=== PATIENT | male | born 1935 | race Hispanic/Latino ===

== ENCOUNTER 2017-04-20 18:02 | Inpatient (IN) | payer MEDICARE, OTHER ==
[~2017-04-20] VITALS: Ht 167.6 cm; Wt 77.2 kg
[~2017-04-20 18:02] MED LIST: DEXAMETHASONE SOD PHOS INJ 4 MG/ML VIAL ONE; LIDOCAINE HCL 2% LOCAL INJ 5 ML SDV VIAL INJ ONE; ONDANSETRON HCL INJ 2 MG/ML VIAL ONE; PROPOFOL IV EMULSION 10 MG/ML 20 ML VIAL ONE; SEVOFLURANE INHAL SOLN 250 ML PEN BTL ONE
[2017-04-20] MEDS ORDERED: KETOROLAC TROMETHAMINE 30 MG/ML VIAL IM STA (18:33)
[2017-04-20] MEDS ORDERED: SODIUM CHLORIDE 0.9% 1000ML 1,000 ML IV STA (18:33)
[2017-04-20] MEDS ORDERED: ACETAMINOPHEN 325 MG TAB PO STA (18:33)
[2017-04-20 18:49] LABS: BASOPHILS % 0.4 % (0.0-1.0); EOSINOPHILS # (AUTO) 0.1 (0.0-0.4); EOSINOPHILS % 1.6 % (0.0-6.0); HEMATOCRIT 32.3 % (38.2-49.6); HEMOGLOBIN 10.9 g/dL (14.0-18.0); MEAN CORPUSCULAR HEMOGLOBIN 31.4 pg (28-32); MEAN CORPUSCULAR HGB CONC 33.7 g/dL (31-35); MEAN CORPUSCULAR VOLUME 93.1 fL (81-99); MONOCYTES # (AUTO) 0.8 (0.2-0.8); MONOCYTES % 10.3 % (4.4-11.3); NEUTROPHILS # (AUTO) 5.4 (2.1-6.9); NEUTROPHILS % 73.4 % (38.7-80.0); PLATELET COUNT 244 x10e3/uL (140-360); RED BLOOD COUNT 3.47 x10e6/uL (4.3-5.7); RED CELL DISTRIBUTION WIDTH 11.9 % (11.7-14.4)
[2017-04-20 19:00] LABS: ALBUMIN 2.9 g/dL (3.5-5.0); ALBUMIN/GLOBULIN RATIO 0.7 (0.8-2.0); ANION GAP 12.2 mmol/L (8-16); CALCIUM 8.8 mg/dL (8.4-10.2); CREATININE, SERUM 1.66 mg/dL (0.72-1.25); POTASSIUM 4.2 mmol/L (3.5-5.1)
[2017-04-20 19:46] LABS: BILIRUBIN,URINE NEGATIVE (NEGATIVE); CLARITY,URINE SL CLOUDY (CLEAR); COLOR,URINE YELLOW (YELLOW); KETONES,URINE 2+ (NEGATIVE); LEUKOCYTE ESTERASE ,URINE TRACE (NEGATIVE); NITRITE,URINE NEGATIVE (NEGATIVE); PROTEIN,URINE DIPSTICK 1+ (NEGATIVE); URINE UROBILINOGEN 0.2 mg/dL (0.2 - 1)
[2017-04-20 20:00] LABS: BACTERIA,URINE MODERATE /HPF; RBC,URINE 0-5 /HPF (0-5); WBC,URINE (MAN) 0-5 /HPF (0-5)
[2017-04-20 20:01] LABS: TRIPLE PHOSPHATE CRYSTAL,UR MODERATE (FEW)
--- NOTE | 2017-04-20 20:03 | Diagnostic Imaging Report ---
EXAM: CT of the abdomen and pelvis WITHOUT contrast HISTORY: Abdominal pain, flank pain, difficult urination COMPARISON: None available. TECHNIQUE: The abdomen and pelvis were scanned utilizing a multidetector helical scanner. Coronal and sagittal reformats are available. PROTOCOL: Routine IV CONTRAST: None, which limits sensitivity and specificity of evaluation of the soft tissues and vascular structures. ORAL CONTRAST: None, which limits sensitivity and specificity of evaluation of the bowel. RADIATION DOSE: Total DLP: 467.58 mGy*cm Estimated effective dose: (DLP x 0.015 x size factor) COMPLICATIONS: None FINDINGS: LOWER THORAX: Minimal bibasilar atelectasis versus scarring. HEPATOBILIARY: No definite focal hepatic lesions. No biliary ductal dilatation. The gallbladder is partially contracted. SPLEEN: No splenomegaly. PANCREAS: No focal masses or ductal dilatation. Diffuse parenchymal atrophy. ADRENALS: No discrete adrenal nodule. KIDNEYS/URETERS: Bilateral perinephric fat stranding, left greater than right. An oval 1.8 x 0.9 cm calcified stone within the proximal left ureter, results in mild to moderate hydronephrosis. A 4.3 cm partially exophytic cyst at the interpolar region of the left kidney. PELVIC ORGANS/BLADDER: The visualized pelvic organs appear unremarkable. PERITONEUM / RETROPERITONEUM: No free air or fluid. GI TRACT: On limited evaluation of the gastrointestinal tract, no dilation or wall thickening identified. Radiopaque suture material at the distal sigmoid colon. LYMPH NODES: No pathologically enlarged lymph nodes. VESSELS: Scattered atherosclerotic vascular calcifications, including the coronary arteries. BONES: No aggressive osseous lesion or acute fracture. Diffusely decreased mineralization of the osseous structures limits bone detail. SOFT TISSUES: A small fat-containing ventral abdominal wall hernia (series 3 image 100), no associated fat stranding. IMPRESSION: A 1.8 x 0.9 cm proximal left ureteral stone resulting in mild to moderate hydronephrosis. Signed by: Dr. Tino Bean D.O., M.M.M. on 04/20/2017 7:59 PM
[2017-04-20] MEDS ORDERED: CEFTRIAXONE SOD 1 GM VIAL IM ONE (20:15)
[2017-04-20] MEDS: SODIUM CHLORIDE 0.9% 1000ML 1,000 ML IV SCH (20:59)
[2017-04-20] MEDS ORDERED: ONDANSETRON HCL INJ 2 MG/ML VIAL IV PRN (21:00)
[2017-04-20] MEDS ORDERED: CEFTRIAXONE SOD 1 GM VIAL IV SCH (21:00)
[2017-04-20] MEDS ORDERED: ACETAMINOPHEN 1000 MG/100 ML IV PRN (21:00)
[2017-04-20] MEDS ORDERED: DEXTROSE 50% SYRINGE 50 ML IV PRN (21:00)
[2017-04-20] MEDS ORDERED: HYDROMORPHONE 1MG/1ML INJ IV PRN (21:00)
[2017-04-20] MEDS: INSULIN REGULAR, HUMAN 100 UNIT/1 ML 3ML VIAL SQ SCH ×2 (21:17→21:28)
[2017-04-20] MEDS ORDERED: LISINOPRIL2.5 MG PO (21:38)
[2017-04-20] MEDS ORDERED: ASPIR 8181 MG PO (21:38)
[2017-04-20 22:00] VITALS: BP 136/60
[2017-04-21 04:00] VITALS: BP 138/63
[2017-04-21] MEDS: SODIUM CHLORIDE 0.9% 1000ML 1,000 ML IV SCH ×3 (04:43→21:10)
[2017-04-21 06:55] LABS: BASOPHILS % 0.7 % (0.0-1.0); EOSINOPHILS # (AUTO) 0.3 (0.0-0.4); EOSINOPHILS % 4.9 % (0.0-6.0); HEMATOCRIT 28.7 % (38.2-49.6); HEMOGLOBIN 9.8 g/dL (14.0-18.0); LYMPHOCYTES # (AUTO) 1.3 (1.0-3.2); LYMPHOCYTES % 23.2 % (18.0-39.1); MEAN CORPUSCULAR HEMOGLOBIN 31.8 pg (28-32); MEAN CORPUSCULAR HGB CONC 34.1 g/dL (31-35); MEAN CORPUSCULAR VOLUME 93.2 fL (81-99); MONOCYTES # (AUTO) 0.7 (0.2-0.8); MONOCYTES % 12.8 % (4.4-11.3); NEUTROPHILS # (AUTO) 3.2 (2.1-6.9); NEUTROPHILS % 58.2 % (38.7-80.0); PLATELET COUNT 202 x10e3/uL (140-360); RED BLOOD COUNT 3.08 x10e6/uL (4.3-5.7); RED CELL DISTRIBUTION WIDTH 11.9 % (11.7-14.4)
--- NOTE | 2017-04-21 07:11 | History and Physical ---
PRIMARY CARE PHYSICIAN: Dr. Loving CHIEF COMPLAINT: Left flank pain. HISTORY OF PRESENT ILLNESS: This is a 81-year-old man with a history of nephrolithiasis, now developing left-sided flank pain prompting his visit to the hospital. He denies any vomiting, diarrhea or fever. He did have some chills at home. His pain was 5/5. Here he was found to have left-sided ureterolithiasis and hydronephrosis. He is admitted for further evaluation and management. PAST MEDICAL HISTORY: Nephrolithiasis, diabetes mellitus, type 2, colon disease requiring partial colectomy. PAST SURGICAL HISTORY: Nephrolithiasis and partial colectomy. ALLERGIES: PER ELECTRONIC MEDICAL RECORDS. FAMILY HISTORY/SOCIAL HISTORY: Patient is . He has 7 children. No alcohol, illicits or cigarettes. MEDICATIONS: Per electronic medical records. REVIEW OF SYSTEMS: Denies any dizziness or chest pain. PHYSICAL EXAMINATION VITAL SIGNS: Reviewed. GENERAL: A tired-appearing man resting in bed. HEENT: Anicteric. Pupils respond to light. No oral lesions. CARDIOVASCULAR: Normal S1 and S2. LUNGS: Moderate breath sounds. ABDOMEN: Soft, nontender and nondistended. In the anterior abdominal wall, his left flank is tender to percussion. EXTREMITIES: No edema or calf tenderness. NEUROLOGICAL: Alert and oriented times 3. Moving all extremities. SKIN: Dry. PSYCHIATRIC: Normal affect. LABS: Reviewed. MEDICATIONS: Reviewed. ASSESSMENT AND PLAN: This is a 81-year-old man with: 1. A 1.8 x 0.9 cm proximal left ureterolithiasis: Continue rehydration. Urology has been consulted. 2. Mild to moderate hydronephrosis: We need to monitor urine output while he is on intravenous fluids. 3. Left flank pain: P.r.n. pain medication. 4. Normocytic anemia: Mild. Will follow. 5. Overweight state: Body mass index 28.1. Elevated blood glucose with hyperglycemia. Will do screening for diabetes. 6. Acute kidney injury: Rehydrate the patient. 7. Urinary tract infection: Will continue intravenous ceftriaxone and follow up cultures. 8. Prophylaxis: Will use sequential compression devices and Pepcid. 9. Disposition: Urology consultation. Job#: [id number] RI
[2017-04-21 07:24] LABS: ALBUMIN 2.4 g/dL (3.5-5.0); ALBUMIN/GLOBULIN RATIO 0.7 (0.8-2.0); ANION GAP 11.9 mmol/L (8-16); CALCIUM 8.1 mg/dL (8.4-10.2); CREATININE, SERUM 1.61 mg/dL (0.72-1.25); POTASSIUM 3.9 mmol/L (3.5-5.1)
[2017-04-21] MEDS: FAMOTIDINE 20 MG TAB PO SCH ×2 (07:30→16:56)
[2017-04-21] MEDS: INSULIN REGULAR, HUMAN 100 UNIT/1 ML 3ML VIAL SQ SCH ×4 (07:30→21:15)
[2017-04-21 07:48] VITALS: BP 166/73
--- NOTE | 2017-04-21 08:29 | Diagnostic Imaging Report ---
PROCEDURE:ABDOMEN-1VIEW (KUB) TECHNIQUE:Portable AP abdomen INDICATION:Calculus of kidney COMPARISON:Patients [facility], CT, CT ABDOMEN/PELVIS WO, 04/20/2017, 19:19. Patients [facility], DX, ABDOMEN - 1 VIEW (KUB), 07/17/2010, 8:14. FINDINGS: See conclusion. CONCLUSION: 1. A 1 cm stone at the left ureteropelvic junction is poorly at the level of L3, likely as a consequence of portable technique. See the CT abdomen from April 20, 2017. 2. Normal bowel gas pattern. Dictated by: Richard Pardo M.D. on 04/21/2017 at 8:38 Electronically approved by: Richard Pardo M.D. on 04/21/2017 at 8:38
[2017-04-21] MEDS ORDERED: FENTANYL CITRATE/PF 100MCG/2 ML INJ ONE (11:15)
[2017-04-21 12:16] VITALS: BP 160/72
[2017-04-21] MEDS ORDERED: IOPAMIDOL 610MG/1ML 300 MG/ML VIAL IV ONE (15:19)
[2017-04-21 16:32] VITALS: BP 178/77
[2017-04-21 20:03] VITALS: BP 154/67
--- NOTE | 2017-04-21 20:37 | Operative Report ---
DATE OF PROCEDURE: April 21, 2017 PREOPERATIVE DIAGNOSES 1. Left ureterolithiasis. 2. Left hydronephrosis. 3. Left renal colic. . POSTOPERATIVE DIAGNOSES 1. Left ureterolithiasis. 2. Left hydronephrosis. 3. Left renal colic. . 4. Multiple small bladder stones, fragmented in the bladder. OPERATION PERFORMED: 1. Cystoscopy and right retrograde pyelograms under fluoroscopic control. This was done as a separate indication for further evaluation of the microhematuria. 2. Left retrograde pyelograms under fluoroscopic control. This is done for a separate indication based on the left hydronephrosis and ureterolithiasis. 3. Left ureteroscopy and manipulation of stone on the left side. 4. Placement of double J stent, 7-Wolof 26 cm long to the left side. This is done as a separate procedure performed for the treatment of the hydronephrosis on the left side. 5. Removal of small fragments of stones from the bladder to render her clear. 6. Interpretation of x-ray. Radiologist not present. 7. Supervision of fluoroscopy. Radiologist not present. PIPE ORGAN MECHANIC APPRENTICE: None. ANESTHESIA: General. CLINICAL INDICATION NOTE: This is a 81-year-old patient who presented with left renal colic and stone blocking the kidney. Patient has a past history of nephrolithiasis. He was brought for treatment. Procedure which is planned is assessment and manipulation of the stone and placement of stent. The patient accepts the suggested procedure. DESCRIPTION OF PROCEDURE AND FINDINGS: After proper level of anesthesia was achieved, the patient was placed in the lithotomy position, prepped and draped in a sterile fashion. Urethra inspected and is unremarkable. Obstructed by a small prostate. Bladder is trabeculated. Open-end catheter was inserted to the right side and retrograde pyelograms demonstrated normal collecting system with question initially of whether there is a small fragment in the upper kidney. There is no obstruction. Following this the open-ended catheter was inserted to the left side and retrograde pyelogram demonstrating the stone in the upper ureter and hydronephrosis. Guidewire was kept in place and flexed and ureteroscopy was done. Stone was pushed back into the kidney. Guidewire was kept in place and a double J stent. A 7-Wolof 24 cm long was properly positioned on the left side. This was verified by x-ray and endoscopy. Bladder was then irrigated. The scope was removed. Patient was transferred to recovery room in satisfactory condition. He will need additional treatment to fragment the stone. Patient was ahead of time aware of this. Job#: [id number] JOSTIN
[2017-04-21] MEDS ORDERED: CEFTRIAXONE SOD 1 GM VIAL IV SCH (21:00)
[2017-04-21] MEDS ORDERED: WATER STERILE 10 ML VIAL IV SCH (21:00)
[2017-04-21 23:42] VITALS: BP 152/64
[2017-04-22 05:05] VITALS: BP 142/63
[2017-04-22] MEDS: SODIUM CHLORIDE 0.9% 1000ML 1,000 ML IV SCH ×2 (05:22→12:59)
[2017-04-22] MEDS ORDERED: FAMOTIDINE20 MG PO (06:48)
[2017-04-22] MEDS ORDERED: KEFLEX500 MG PO ×2 (06:48→06:53)
[2017-04-22] MEDS ORDERED: TYLENOL WITH C1 EACH PO (06:50)
--- NOTE | 2017-04-22 07:09 | Discharge Summary ---
PRINCIPAL DIAGNOSES 1. Proximal left ureterolithiasis, status post cystoscopy and stent placement. 2. Mild to moderate hydronephrosis. 3. Left flank pain. 4. Normocytic anemia. 5. Overweight state. Body mass index 28.1. 6. Acute kidney injury. 7. Urinary tract infection. 8. 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 SECONDARY DIAGNOSIS: Nephrolithiasis. CHIEF COMPLAINT: Left flank pain. HISTORY OF PRESENT ILLNESS: A 81-year-old man with flank pain. Refer to the H and P for further details. HOSPITAL COURSE: Patient had a 1.8 x 0.9 cm proximal left ureterolithiasis. Underwent cystoscopy with stent placement. Had mild to moderate hydronephrosis treated with IV fluids. Had flank pain, which improved with pain medication. Normocytic anemia was mild. Overweight state with BMI of 28.1. Acute kidney injury treated with IV fluids. Urinary tract infection treated with ceftriaxone. He will be discharged home with Keflex for 14 additional days. Will obtain labs this morning. If renal function is improving, we are going to discharge home once cleared by urology. CONDITION ON DISCHARGE: Stable and improving. DISCHARGE LOCATION: Home. TERI RAMIREZ MD Job#: [id number] SC
[2017-04-22 07:25] LABS: BASOPHILS % 0.7 % (0.0-1.0); HEMATOCRIT 29.8 % (38.2-49.6); HEMOGLOBIN 10.3 g/dL (14.0-18.0); LYMPHOCYTES # (AUTO) 0.9 (1.0-3.2); LYMPHOCYTES % 16.3 % (18.0-39.1); MEAN CORPUSCULAR HEMOGLOBIN 32.1 pg (28-32); MEAN CORPUSCULAR HGB CONC 34.6 g/dL (31-35); MEAN CORPUSCULAR VOLUME 92.8 fL (81-99); MONOCYTES # (AUTO) 0.2 (0.2-0.8); MONOCYTES % 3.3 % (4.4-11.3); NEUTROPHILS # (AUTO) 4.5 (2.1-6.9); NEUTROPHILS % 79.3 % (38.7-80.0); PLATELET COUNT 234 x10e3/uL (140-360); RED BLOOD COUNT 3.21 x10e6/uL (4.3-5.7); RED CELL DISTRIBUTION WIDTH 11.7 % (11.7-14.4)
[2017-04-22 07:52] LABS: ANION GAP 11.2 mmol/L (8-16); BLOOD UREA NITROGEN 22 mg/dL (7-26); BUN/CREATININE RATIO 19 (6-25); CALCIUM 7.8 mg/dL (8.4-10.2); CARBON DIOXIDE 21 mmol/L (22-29); CHLORIDE 110 mmol/L (98-107); CREATININE, SERUM 1.15 mg/dL (0.72-1.25); EST GLOMERULAR FILTRATION RATE > 60 ML/MIN (60-); GLUCOSE 134 mg/dL (74-118); POTASSIUM 4.2 mmol/L (3.5-5.1); SODIUM 138 mmol/L (136-145)
[2017-04-22 08:07] VITALS: BP 174/72
[2017-04-22] MEDS: INSULIN REGULAR, HUMAN 100 UNIT/1 ML 3ML VIAL SQ SCH ×2 (08:30→12:30)
[2017-04-22] MEDS: FAMOTIDINE 20 MG TAB PO SCH (08:30)
[2017-04-22] MEDS ORDERED: DOCUSATE SODIUM 100 MG CAP PO SCH ×2 (09:00)
[2017-04-22] MEDS ORDERED: SENNOSIDES 8.6 MG TAB PO SCH ×2 (09:00)
--- NOTE | 2017-04-22 13:49 | Consultation ---
DATE OF CONSULTATION: April 21, 2017 SERVICE: Urology. REASON FOR THE CONSULT: Left flank pain, hydronephrosis, ureterolithiasis in the upper ureter on the left side. HISTORY OF PRESENT ILLNESS: This is a 81-year-old patient, who was admitted to the hospital through the emergency room. He did have left side flank pain started several days before. He is describing the pain as 5 out of 5. He was found to have a left side ureterolithiasis in the upper ureter and hydronephrosis. PAST MEDICAL HISTORY: Nephrolithiasis. He did have in May 2010 treatment of left renal stones with ESWL and stents by Dr. Dmitriy Roger. Patient probably did not follow up after. PAST MEDICAL HISTORY: Also significant for partial colectomy. He does have a type-2 diabetes as well. ALLERGY TO MEDICATIONS: See MAR. FAMILY HISTORY: Patient is , has 7 kids. No use of alcohol, illicit drugs or tobacco. MEDICATIONS: See MAR. REVIEW OF SYSTEMS: Twelve systems reviewed. All were negative except for mentioned about the flank pain for few days. As far as voiding is concerned, he does have nocturia and some frequency. PHYSICAL EXAM GENERAL: Patient is alert and oriented times 3. Does not seem to be in acute distress at the present time. VITALS: Blood pressure 140/65, pulse 80, temperature 96 6. HEAD: Symmetric EYES: No movement. NECK: No JVD, masses. CHEST: Clear. HEART: Regular. ABDOMEN: Soft. : External genitalia unremarkable. No testicular masses. Prostate enlarged. EXTREMITIES: No edema. Moves all. LABORATORY DATA: Hemoglobin 9.8, white count 5.47. Creatinine 1.61. Electrolytes normal. Bilirubin 0.4 total and AST 42, ALT 36, alkaline phosphatase 112. CT scan of the abdomen and pelvis, this was done, suggested blocking stone on the left upper ureter and hydronephrosis. IMPRESSIONS 1. Left nephrolithiasis. 2. Left hydronephrosis. 3. Left renal colic. 4. Diabetes mellitus, type 2. 5. History of colon resection. PLAN: Due to the blocking kidney and the recurrent stone, would recommend to proceed with placement of double J-stent and this was explained to the patient and accepted. Job#: [id number] CQ
== END 2017-04-22 14:55 | disposition home or self-care (01) | DRG 690 ==
LOC: ER 18:02 → MED/SURG 21:12
PROVIDERS: ADMIT Internal Medicine; ATTEND Internal Medicine
PROC: 0TCB8ZZ Extirpation of Matter from Bladder, Via Natural or Artificial Opening Endoscopic (ICD-10-PCS; 2017-04-21)
PROC: BT1F1ZZ Fluoroscopy of Left Kidney, Ureter and Bladder using Low Osmolar Contrast (ICD-10-PCS; 2017-04-21)
PROC: BT1D1ZZ Fluoroscopy of Right Kidney, Ureter and Bladder using Low Osmolar Contrast (ICD-10-PCS; 2017-04-21)
PROC: 0T778DZ Dilation of Left Ureter with Intraluminal Device, Via Natural or Artificial Opening Endoscopic (ICD-10-PCS; principal; 2017-04-21 14:30)
DX: N13.6 Pyonephrosis (principal); N17.9 Acute kidney failure, unspecified; E11.9 Type 2 diabetes mellitus without complications; D64.9 Anemia, unspecified; E66.3 Overweight; N21.0 Calculus in bladder; N39.0 Urinary tract infection, site not specified; Z68.28 Body mass index [BMI] 28.0-28.9, adult; Z90.49 Acquired absence of other specified parts of digestive tract
CPT/HCPCS: 36415; 74000; 74176; 74420; 80048; 80053; 80061; 81001; 82948; 83036; 83605; 85025; 87086; 99284; C2617; J0696; J1100; J1885; J2001; J2405; J7030

== ENCOUNTER → 2017-07-26 | Day surgery (SDC) | payer MEDICARE, OTHER ==
[2017-07-25 16:08] LABS: BASOPHILS # (AUTO) 0.1 (0.0-0.1); BASOPHILS % 0.7 % (0.0-1.0); EOSINOPHILS # (AUTO) 0.2 (0.0-0.4); EOSINOPHILS % 2.6 % (0.0-6.0); HEMATOCRIT 33.9 % (38.2-49.6); HEMOGLOBIN 11.3 g/dL (14.0-18.0); LYMPHOCYTES # (AUTO) 2.6 (1.0-3.2); LYMPHOCYTES % 37.8 % (18.0-39.1); MEAN CORPUSCULAR HEMOGLOBIN 30.8 pg (28-32); MEAN CORPUSCULAR HGB CONC 33.3 g/dL (31-35); MEAN CORPUSCULAR VOLUME 92.4 fL (81-99); MONOCYTES # (AUTO) 0.4 (0.2-0.8); MONOCYTES % 6.3 % (4.4-11.3); NEUTROPHILS # (AUTO) 3.7 (2.1-6.9); NEUTROPHILS % 52.5 % (38.7-80.0); PLATELET COUNT 230 x10e3/uL (140-360); RED BLOOD COUNT 3.67 x10e6/uL (4.3-5.7); RED CELL DISTRIBUTION WIDTH 12.6 % (11.7-14.4)
[2017-07-25 16:24] LABS: ANION GAP 10.8 mmol/L (8-16); BLOOD UREA NITROGEN 16 mg/dL (7-26); BUN/CREATININE RATIO 17 (6-25); CARBON DIOXIDE 27 mmol/L (22-29); CHLORIDE 107 mmol/L (98-107); CREATININE, SERUM 0.95 mg/dL (0.72-1.25); EST GLOMERULAR FILTRATION RATE > 60 ML/MIN (60-); GLUCOSE 124 mg/dL (74-118); POTASSIUM 3.8 mmol/L (3.5-5.1); SODIUM 141 mmol/L (136-145)
--- NOTE | 2017-07-25 17:47 | Diagnostic Imaging Report ---
PROCEDURE: Frontal and lateral views of the chest. COMPARISON: None. INDICATIONS: PRE-OPERATIVE CHEST X-RAY FOR RENAL STENT FINDINGS: Lines/tubes: None. Lungs: The lungs are well inflated and clear. There is no evidence of pneumonia or pulmonary edema. Pleura: There is no pleural effusion or pneumothorax. Heart and mediastinum: The heart and the mediastinum are normal. Bones: No acute bony abnormality. IMPRESSION: No acute cardiopulmonary disease. Dictated by: Manpreet Medley M.D. on 07/25/2017 at 17:47 Electronically approved by: Manpreet Medley M.D. on 07/25/2017 at 17:47
[~2017-07-26] MED LIST changes: +ALLOPURINOL100 MG PO; +ASPIR 8181 MG PO; +BELLADONNA/OPIUM 60 MG SUPP PR ONE; +CEFAZOLIN SOD 2 GM/D5W 50ML 50 ML IV ONE; +EPHEDRINE SULFATE INJ 50 MG/10 ML SYR ONE; +FAMOTIDINE20 MG PO; +FENTANYL CITRATE/PF 100MCG/2 ML INJ ONE; +GLIPIZIDE ER5 MG PO; +IOPAMIDOL 610MG/1ML 300 MG/ML VIAL IV ONE; +IOTHALAMATE MEGLUMINE 17.20% 250 ML BTL ONE; +KEFLEX500 MG PO; +LISINOPRIL2.5 MG PO; +METFORMIN HCL500 M2 PO; +MIDAZOLAM HCL 2 MG/2 ML VIAL ONE; +PEPCID20 MG PO; +TYLENOL WITH C1 EACH PO; +VESICARE5 MG PO
--- OUTSIDE RECORDS SUMMARY | 2017-07-26 07:24 | XMS REPORT ---
[facility] Address Unknown Phone Unavailable Care Team Providers Care Feather Separator Name Role Phone STANISLAW WAN Unavailable Unavailable TERI RAMIREZ Unavailable Unavailable Problems This patient has no known problems. Allergies, Adverse Reactions, Alerts This patient has no known allergies or adverse reactions. Medications This patient has no known medications. Results Test Description Test Time Test Comments Text Results Atomic Results Result Comments CHEST 2 VIEWS [place] [address] Patient Name: DAVID GONZALEZ MR #: [id number] : 1935 Age/Sex: 81/M Req # : [id number] [facility] Physician: Ordered by: TAPAN BANERJEE MD Report #: [id number] Location: OR Room/Bed: Procedure: [id number] DX/CHEST 2 VIEWS Exam Date: 07/25/17 Exam Time: 1708 REPORT STATUS: Signed PROCEDURE: Frontal and lateral views of the chest. COMPARISON: None. INDICATIONS: PRE-OPERATIVE CHEST X- RAY FOR RENAL STENT FINDINGS: Lines/tubes: None. Lungs: The lungs are well inflated and clear. There is no evidence of pneumonia or pulmonary edema. Pleura: There is no pleural effusion or pneumothorax. Heart and mediastinum: The heart and the mediastinum are normal. Bones: No acute bony abnormality. IMPRESSION: No acute cardiopulmonary disease. Dictated by: Lb Palomo M.D. on 07/25/2017 at 17: 47 Electronically approved by: Lb Palomo M.D. on 07/25/2017 at 17:47 Dictated By: LB PALOMO MD 46 COPY TO: TAPAN BANERJEE MD ABDOMEN-1VIEW (KUB) [place] [address] Patient Name: DAVID GONZALEZ MR #: [id number] : 1935 Age/Sex: 81/M Req #: [id number] Adm Physician: TERI RAMIREZ MD Ordered by: STANISLAW WAN MD Report #: [id number] Location: MED/SURG Room/Bed: [facility] Procedure: [id number] DX/ABDOMEN-1VIEW (KUB) Exam Date : 04/21/17 Exam Time: 0800 REPORT STATUS: Signed PROCEDURE: ABDOMEN-1VIEW (KUB) TECHNIQUE: Portable AP abdomen INDICATION: Calculus of kidney COMPARISON: [facility], CT, CT ABDOMEN/PELVIS WO, 04/20/2017, 19:19. [facility], DX, ABDOMEN - 1 VIEW (KUB), 07/17/2010, 8:14. FINDINGS: See conclusion. CONCLUSION: 1. A 1 cm stone at the left ureteropelvic junction is poorly at the level of L3, likely as a consequence of portable technique. See the CT abdomen from April 20, 2017. 2. Normal bowel gas pattern. Dictated by: Ursula Pardo M.D. on 04/21/2017 at 8:38 Electronically approved by: Ursula Pardo M.D. on 04/21/2017 at 8:38 Dictated By: URSULA PARDO MD 7 Transcribed By: TEVIN on 04/21/17837 COPY TO: STANISLAW WAN MD CT ABDOMEN/PELVIS WO [place] [address] Patient Name: DAVID GONZALEZ MR #: [id number] : 1935 Age/Sex: 81/M Req #: [id number] Adm Physician: Ordered by: SHELLIE DUKE BASEBALL WINDER Report #: [id number] Location: ER Room/Bed: Procedure: [id number] CT/CT ABDOMEN/PELVIS WO Exam Date: 04/20/17 Exam Time: 1918 REPORT STATUS: Signed EXAM: CT of the abdomen and pelvis WITHOUT contrast HISTORY: Abdominal pain, flank pain, difficult urination COMPARISON: None available. TECHNIQUE: The abdomen and pelvis were scanned utilizing a multidetector helical scanner. Coronal and sagittal reformats are available. PROTOCOL: Routine IV CONTRAST: None, which limits sensitivity and specificity of evaluation of the soft tissues and vascular structures. ORAL CONTRAST: None, which limits sensitivity and specificity of evaluation of the bowel. RADIATION DOSE: Total DLP: 467.58 mGy*cm Estimated effective dose: (DLP x 0.015 x size factor) COMPLICATIONS: None FINDINGS: LOWER THORAX: Minimal bibasilar atelectasis versus scarring. HEPATOBILIARY: No definite focal hepatic lesions. No biliary ductal dilatation. The gallbladder is partially contracted. SPLEEN: No splenomegaly. PANCREAS: No focal masses or ductal dilatation. Diffuse parenchymal atrophy. ADRENALS: No discrete adrenal nodule. KIDNEYS/URETERS: Bilateral perinephric fat stranding, left greater than right. An oval 1.8 x 0.9 cm calcified stone within the proximal left ureter, results in mild to moderate hydronephrosis. A 4.3 cm partially exophytic cyst at the interpolar region of the left kidney. PELVIC ORGANS/ BLADDER: The visualized pelvic organs appear unremarkable. PERITONEUM / RETROPERITONEUM: No free air or fluid. GI TRACT: On limited evaluation of the gastrointestinal tract, no dilation or wall thickening identified. Radiopaque suture material at the distal sigmoid colon. LYMPH NODES: No pathologically enlarged lymph nodes. VESSELS: Scattered atherosclerotic vascular calcifications, including the coronary arteries. BONES: No aggressive osseous lesion or acute fracture. Diffusely decreased mineralization of the osseous structures limits bone detail. SOFT TISSUES: A small fat-containing ventral abdominal wall hernia (series 3 image 100), no associated fat stranding. IMPRESSION: A 1.8 x 0.9 cm proximal left ureteral stone resulting in mild to moderate hydronephrosis. Signed by: Dr. Lauryn Bean D.O., M.M.M. on 04/20/2017 7:59 PM Dictated By: LAURYN BEAN DO 58 Transcribed By: AUDREY on 04/20/171958 COPY TO: SHELLIE DUKE NP
--- NOTE | 2017-07-26 12:38 | Operative Report ---
DATE OF PROCEDURE: July 26, 2017 SERVICE: Urology. PREOPERATIVE DIAGNOSIS: 1. Left nephrolithiasis, radiolucent stone. 2. Obstructed left double-J stent. 3. Left hydronephrosis. POSTOPERATIVE DIAGNOSIS: 1. Left nephrolithiasis, radiolucent stone. 2. Obstructed left double-J stent. 3. Left hydronephrosis. OPERATION PERFORMED: 1. Cystoscopy, removal of double-J stent from the left side. 2. Left retrograde pyelograms under fluoroscopic control. 3. Placement of stent 7-Vietnamese 24-cm-long to the left side. 4. Extracorporeal shockwave lithotripsy of left kidney stone. 5. Interpretation of x-ray. Radiologist not present. 6. Supervision of fluoroscopy. Radiologist not present. ENROLLMENT SPECIALIST: None. ANESTHESIA: General. CLINICAL INDICATION NOTE: This is a 81-year-old patient who has a large stone in the left renal pelvis 2 cm x 1 cm long, which is radiolucent. The patient was brought for lithotripsy of the stone. He does have a stent in place, which appeared to be blocked. This procedure was discussed with the patient and with a mink slicer. He knows what it is, benefits and complications of the procedure. DESCRIPTION OF PROCEDURE AND FINDINGS: After achieving the proper level of anesthesia, patient was placed in the supine position. Fluoroscopy at that point did not demonstrate very clearly the stone; and, therefore, cystogram was done. However, no reflux occurred to the left side. Therefore, the patient was placed in lithotomy position, prepped and draped in a sterile fashion. The double-J stent appeared to be quite occluded. It was removed. Open-end catheter was inserted, and retrograde pyelograms were done. The contrast was kept in place, and it clearly showed the stone. The stone was treated with 3000 shocks and disintegrated well. Following this, the wire was inserted and a double-J stent 7-Vietnamese 24-cm-long was properly positioned on the left side. Following this, a B and O suppository was inserted and patient was transferred in satisfactory condition to the recovery room. Additional treatment will be planned. Job#: [id number] EV
== END | disposition home or self-care (01) ==
LOC: OR 07:21
PROVIDERS: ATTEND Urology
DX: N20.0 Calculus of kidney (principal); Z46.6 Encounter for fitting and adjustment of urinary device; N13.30 Unspecified hydronephrosis; E11.9 Type 2 diabetes mellitus without complications; Z01.810 Encounter for preprocedural cardiovascular examination; Z01.812 Encounter for preprocedural laboratory examination; Z01.818 Encounter for other preprocedural examination; I10 Essential (primary) hypertension; Z79.82 Long term (current) use of aspirin
CPT/HCPCS: 36415 ×2; 50590; 52332; 71046; 80048; 82948; 85025; 93005; C2617; J1100; J2001; J2250; J2405; Q9958; Q9967

== ENCOUNTER → 2022-10-18 | Outpatient (CLI) | payer MEDICARE, OTHER ==
[~2022-10-18] MED LIST changes: -BELLADONNA/OPIUM 60 MG SUPP PR ONE; -CEFAZOLIN SOD 2 GM/D5W 50ML 50 ML IV ONE; -DEXAMETHASONE SOD PHOS INJ 4 MG/ML VIAL ONE; -EPHEDRINE SULFATE INJ 50 MG/10 ML SYR ONE; -FENTANYL CITRATE/PF 100MCG/2 ML INJ ONE; -IOPAMIDOL 610MG/1ML 300 MG/ML VIAL IV ONE; -IOTHALAMATE MEGLUMINE 17.20% 250 ML BTL ONE; -LIDOCAINE HCL 2% LOCAL INJ 5 ML SDV VIAL INJ ONE; -MIDAZOLAM HCL 2 MG/2 ML VIAL ONE; -ONDANSETRON HCL INJ 2 MG/ML VIAL ONE; -PROPOFOL IV EMULSION 10 MG/ML 20 ML VIAL ONE; -SEVOFLURANE INHAL SOLN 250 ML PEN BTL ONE
== END ==
LOC: RAD 08:50
PROVIDERS: ATTEND Urology
DX: N20.0 Calculus of kidney (principal); T19.1XXA Foreign body in bladder, initial encounter
CPT/HCPCS: 74018

== ENCOUNTER → 2022-10-27 | Day surgery (SDC) | payer MEDICARE, OTHER ==
[2022-10-25 11:34] LABS: BASOPHILS # (AUTO) 0.1 (0.0-0.1); BASOPHILS % 0.9 % (0.0-1.0); EOSINOPHILS # (AUTO) 0.2 (0.0-0.4); EOSINOPHILS % 2.6 % (0.0-6.0); HEMATOCRIT 30.3 % (38.2-49.6); HEMOGLOBIN 9.9 g/dL (14.0-18.0); LYMPHOCYTES # (AUTO) 2.4 (1.0-3.2); LYMPHOCYTES % 42.2 % (18.0-39.1); MEAN CORPUSCULAR HEMOGLOBIN 31.6 pg (28-32); MEAN CORPUSCULAR HGB CONC 32.7 g/dL (31-35); MEAN CORPUSCULAR VOLUME 96.8 fL (81-99); MONOCYTES # (AUTO) 0.2 (0.2-0.8); MONOCYTES % 3.9 % (4.4-11.3); NEUTROPHILS # (AUTO) 2.9 (2.1-6.9); NEUTROPHILS % 50.2 % (38.7-80.0); PLATELET COUNT 163 x10e3/uL (140-360); RED BLOOD COUNT 3.13 x10e6/uL (4.3-5.7); RED CELL DISTRIBUTION WIDTH 12.9 % (11.7-14.4)
[2022-10-25 11:56] LABS: ANION GAP 13.9 mmol/L (8-16); CALCIUM 8.8 mg/dL (8.4-10.2); CREATININE, SERUM 1.26 mg/dL (0.72-1.25); POTASSIUM 3.9 mmol/L (3.5-5.1)
[~2022-10-27] MED LIST changes: +ACETAMINOPHEN 1000 MG/100 ML 100 ML IV ONE; +FENTANYL CITRATE/PF 100MCG/2 ML INJ ONE; +FERROUS SULFAT325 MG PO; +FLOMAX0.4 MG PO; +GENTAMICIN 120MG/NS 100ML 100 ML ONE; +IOPAMIDOL 610MG/1ML 300 MG/ML VIAL IV ONE; +LACTATED RINGER'S 1,000 ML ONE; +LIDOCAINE HCL 2% LOCAL INJ 5 ML SDV VIAL INJ ONE; +ONDANSETRON HCL INJ 2MG/ML 2ML 2 MG/ML VIAL ONE; +POVIDONE IODINE 0.05% 0.05 % ML PO ONE; +PROPOFOL IV EMULSION 10 MG/ML 20 ML VIAL ONE; +SENOKOT-S TABL1 EACH PO; +SEVOFLURANE INHAL SOLN 250 ML PEN BTL ONE; +VITAMIN D3 COM1 EACH PO
[2022-10-27 12:40] VITALS: BP 168/70; PULSE 62; RESP 18; O2SAT 100
== END | disposition home or self-care (01) ==
LOC: OR 06:51
PROVIDERS: ATTEND Urology
DX: N20.0 Calculus of kidney (principal); N20.1 Calculus of ureter; N21.0 Calculus in bladder; Z46.6 Encounter for fitting and adjustment of urinary device; I10 Essential (primary) hypertension; E11.9 Type 2 diabetes mellitus without complications; Z01.810 Encounter for preprocedural cardiovascular examination; Z01.812 Encounter for preprocedural laboratory examination; Z01.818 Encounter for other preprocedural examination; Z79.82 Long term (current) use of aspirin; Z79.899 Other long term (current) drug therapy; Z87.891 Personal history of nicotine dependence
CPT/HCPCS: 36415 ×2; 52356; 71046; 74420; 80048; 82948; 85025; 88300; 93005; C1758 ×2; C1769 ×2; C1874; J0131; J0690; J1580; J2001; J2405; J2704; J3010; J7121; Q9967